=== PATIENT | female | born 1975 | race Caucasian/White ===

== ENCOUNTER 2023-05-03 13:00 | Outpatient (RCR) | payer BC | END 2023-05-22 | disposition home or self-care (01) | LOC: WSPT | DX: I89.0 Lymphedema, not elsewhere classified (principal) ==

== ENCOUNTER 2023-06-16 13:45 | Outpatient (RCR) | payer BC | END 2023-06-22 | disposition home or self-care (01) | LOC: WSPT | DX: I89.0 Lymphedema, not elsewhere classified (principal) ==

== ENCOUNTER 2023-07-18 11:00 | Outpatient (RCR) | payer BC | END 2023-07-21 | disposition home or self-care (01) | LOC: WSPT | DX: I89.0 Lymphedema, not elsewhere classified (principal) ==

== ENCOUNTER 2023-09-30 14:03 | Outpatient (RCR) | payer BC | END 2023-10-21 | disposition home or self-care (01) | LOC: WSPT | DX: I89.0 Lymphedema, not elsewhere classified (principal) ==

== ENCOUNTER 2023-12-21 22:25 | Emergency (ER) | payer BC ==
[~2023-12-21] VITALS: Ht 172.7 cm; Wt 136.4 kg
[2023-12-21 22:38] VITALS: TEMP 101
[2023-12-21] MEDS ORDERED: Ibuprofen 400 MG TAB PO ONE (23:00)
[2023-12-21] MEDS ORDERED: Acetaminophen 500 MG TAB PO ONE (23:15)
[2023-12-21] MEDS ORDERED: NS 1,000 ML IV ONE (23:15)
[2023-12-21 23:45] LABS: BASO % 0.2 % (0.0-2.0); EOS % 0.1 % (0.0-4.0); GRAN # 9.1 K/mm3 (1.4-6.5); GRAN % 82.6 % (42.2-75.2); HEMATOCRIT 42.7 % (37.0-47.0); HEMOGLOBIN 14.4 g/dl (12.5-16.0); LYMPH # 1.2 K/mm3 (1.2-3.4); LYMPH % 10.7 % (20.0-51.0); MEAN CELL VOLUME 90 fl (80.0-100.0); MEAN CORPUSCULAR HEMOGLOBIN 30 pg (27-31); MEAN CORPUSCULAR HGB CONC 34 g/dl (33.0-37.0); MEAN PLATELET VOLUME 8.8 fl (7.4-10.4); MONO # 0.7 K/mm3 (0.1-0.6); PLATELET COUNT 274 K/mm3 (130-400); RED BLOOD COUNT 4.74 M/mm3 (4.10-5.30); REDCELL DISTRIBUTION WIDTH-CV 12.2 % (11.5-14.5)
[2023-12-22 00:01] LABS: ALBUMIN 4.4 g/dL (3.5-5.0); BILIRUBIN,TOTAL 0.3 mg/dL (0.2-1.2); C-REACTIVE PROTEIN 0.42 mg/dL (0.00-0.50); CALCIUM 9.9 mg/dL (8.4-10.2); CREATININE, serum 1.1 mg/dL (0.57-1.11); POTASSIUM 4.5 mEq/L (3.5-4.5); TOTAL PROTEIN 7.8 g/dl (6.2-8.1)
[2023-12-22] MEDS ORDERED: NS 1,000 ML IV ONE (01:00)
[2023-12-22 01:10] LABS: COLLECTION METHOD CLEAN CATCH
[2023-12-22 01:19] LABS: URINE APPEARANCE CLEAR (CLEAR/HAZY); URINE BLOOD 1+ (NEGATIVE); URINE COLOR YELLOW (YELLOW); URINE GLUCOSE NEGATIVE (NEGATIVE); URINE KETONE TRACE (NEGATIVE); URINE NITRATE NEGATIVE (NEGATIVE); URINE PROTEIN(semi-quant) NEGATIVE (NEGATIVE); URINE UROBILINOGEN 0.2 E.U/dL (0.2-1.0)
[2023-12-22] MEDS ORDERED: Iohexol 300 - 100 ML VIAL IV ONE (01:46)
[2023-12-22] MEDS ORDERED: NS 50 ML IV ONE (01:48)
[2023-12-22 03:15] VITALS: BP 143/79; PULSE 105
== END 2023-12-22 03:25 | disposition home or self-care (01) ==
LOC: COL.ER 22:25
PROVIDERS: Family Medicine
DX: I88.0 Nonspecific mesenteric lymphadenitis (principal)
CPT/HCPCS: J7030; Q9967